=== PATIENT | male | born 1985 | race Caucasian/White ===

== ENCOUNTER 2017-11-15 04:15 | Emergency (ER) | payer BC ==
[2017-11-15] MEDS ORDERED: Sodium Chloride 0.9% 1,000 ML IV ONE (04:17)
--- NOTE | 2017-11-15 04:19 | EDM.PDOC ---
ED HPI GENERAL MEDICAL PROBLEM - General Stated Complaint: TINGLING IN THROAT, COUGH, SIDE PAIN Time Seen by Provider: 11/15/17 04:18 Source of Information: Reports: Patient - History of Present Illness INITIAL COMMENTS - FREE TEXT/NARRATIVE: HISTORY AND PHYSICAL: History of present illness: [Patient presents with persistent cough increasing in severity over the last week at current he is coughing until he is lightheaded see spots and nearly vomits he has had couple episodes of near-syncope due to cough on arrival he has diminished breath sounds is provided Solu-Medrol 1 DuoNeb which is cleared this up and resolved the cough No fever nausea vomiting chills sweats no chest pain shortness breath headache dizziness palpitation no bowel or urine symptoms ] Review of systems: As per history of present illness and below otherwise all systems reviewed and negative. Past medical history: As per history of present illness and as reviewed below otherwise noncontributory. Surgical history: As per history of present illness and as reviewed below otherwise noncontributory. Social history: No reported history of drug or alcohol abuse. Family history: As per history of present illness and as reviewed below otherwise noncontributory. Physical exam: HEENT: Atraumatic, normocephalic, pupils reactive, negative for conjunctival pallor or scleral icterus, mucous membranes moist, throat clear, neck supple, nontender, trachea midline. Lungs: Clear to auscultation, breath sounds equal bilaterally, chest nontender. Heart: S1S2, regular, negative for clicks, rubs, or JVD. Abdomen: Soft, nondistended, nontender. Negative for masses or hepatosplenomegaly. Negative for costovertebral tenderness. Pelvis: Stable nontender. Genitourinary: Deferred. Rectal: Deferred. Extremities: Atraumatic, negative for cords or calf pain. Neurovascular unremarkable. Neuro: Awake, alert, oriented. Cranial nerves II through XII unremarkable. Cerebellum unremarkable. Motor and sensory unremarkable throughout. Exam nonfocal. Diagnostics: [CBC CMP troponin EKG Chest 1 view Orthostatic vital signs ] Therapeutics: [ 1 L normal saline bolus ]DuoNeb Solu-Medrol Z-Keshawn Medrol Dosepak HFA Impression: Bronchitis Definitive disposition and diagnosis as appropriate pending reevaluation and review of above. - Related Data Allergies Allergy/AdvReac Type Severity Reaction Status Date / Time No Known Allergies Allergy Verified 11/15/17 04:33 Home Meds: Home Meds . [No Known Home Meds] 11/15/17 [History] ED ROS GENERAL - Review of Systems Review Of Systems: See Below ED EXAM, GENERAL - Physical Exam Exam: See Below Course - Vital Signs Last Recorded V/S: Last Vital Signs Temp 97.4 F 11/15/17 04:30 Pulse 81 11/15/17 04:30 Resp 16 11/15/17 04:30 BP 145/94 H 11/15/17 04:30 Pulse Ox 96 11/15/17 04:30 Orthostatic Blood Pressure [ 133/85 Sitting] Orthostatic Blood Pressure [ 144/85 Supine] - Orders/Labs/Meds Orders: Active Orders 24 hr Category Date Time Status EKG Documentation Completion [RC] STAT Care 11/15/17 04:17 Active Orthostatic Vital Signs [RC] ASDIRECTED Care 11/15/17 04:17 Active RT Aerosol Therapy [RC] ASDIRECTED Care 11/15/17 04:26 Active Chest 1V Frontal [CR] Stat Exams 11/15/17 04:17 Taken Sodium Chloride 0.9% [Normal Saline] 1,000 ml Med 11/15/17 04:17 Active IV STAT Medication Orders Sodium Chloride (Normal Saline) 1,000 mls @ 999 mls/hr IV STAT ONE Stop: 11/15/17 05:17 Last Admin: 11/15/17 04:35 Dose: 999 mls/hr Labs: Laboratory Tests 11/15/17 11/15/17 Range/Units 04:31 04:31 WBC 10.01 (4.0-11.0) K/uL RBC 5.27 (4.50-5.90) M/uL Hgb 16.0 (13.0-17.0) g/dL Hct 45.9 (38.0-50.0) % MCV 87.1 (80.0-98.0) fL MCH 30.4 (27.0-32.0) pg MCHC 34.9 (31.0-37.0) g/dL RDW Std Deviation 41.1 (28.0-62.0) fl RDW Coeff of Home 13 (11.0-15.0) % Plt Count 249 (150-400) K/uL MPV 9.80 (7.40-12.00) fL Neut % (Auto) 58.4 (48.0-80.0) % Lymph % (Auto) 30.6 (16.0-40.0) % [place] % (Auto) 7.9 (0.0-15.0) % Eos % (Auto) 2.8 (0.0-7.0) % Baso % (Auto) 0.3 (0.0-1.5) % Neut # (Auto) 5.9 H (1.4-5.7) K/uL Lymph # (Auto) 3.1 H (0.6-2.4) K/uL [place] # (Auto) 0.8 (0.0-0.8) K/uL Eos # (Auto) 0.3 (0.0-0.7) K/uL Baso # (Auto) 0.0 (0.0-0.1) K/uL Nucleated RBC % 0.0 /100WBC Nucleated RBCs # 0 K/uL Sodium 139 (136-148) mmol/L Potassium 3.7 (3.5-5.1) mmol/L Chloride 101 (98-107) mmol/L Carbon Dioxide 28.7 (21.0-32.0) mmol/L BUN 15 (7.0-18.0) mg/dL Creatinine 1.1 (0.8-1.3) mg/dL Est Cr Clr Drug Dosing 98.19 mL/min Estimated GFR (MDRD) > 60.0 ml/min Glucose 131 H (74-106) mg/dL Calcium 9.0 (8.5-10.1) mg/dL Total Bilirubin 0.3 (0.2-1.0) mg/dL AST 31 (15-37) IU/L ALT 80 H (14-63) IU/L Alkaline Phosphatase 80 (46-116) U/L Troponin I < 0.050 (0.000-0.056) ng/mL Total Protein 7.9 (6.4-8.2) g/dL Albumin 4.0 (3.4-5.0) g/dL Globulin 3.9 H (2.0-3.5) g/dL Albumin/Globulin Ratio 1.0 L (1.3-2.8) Meds: Medications Generic Name Dose Route Start Last Admin Trade Name Freq PRN Reason Stop Dose Admin Sodium Chloride 1,000 mls @ 999 mls/hr 11/15/17 04:17 11/15/17 04:35 Normal Saline IV 11/15/17 05:17 999 mls/hr STAT ONE Administration Discontinued Medications Generic Name Dose Route Start Last Admin Trade Name Erich PRN Reason Stop Dose Admin Albuterol/Ipratropium 3 ml 11/15/17 04:25 11/15/17 04:40 Duoneb 3.0-0.5 Mg/3 Ml NEB 11/15/17 04:26 3 ml ONETIME ONE Administration Methylprednisolone Sodium Succinate 125 mg 11/15/17 04:25 11/15/17 04:40 Solu-Medrol IVPUSH 11/15/17 04:26 125 mg ONETIME ONE Administration Departure - Departure Time of Disposition: 05:17 Disposition: Home, Self-Care 01 Condition: Good Clinical Impression: Bronchitis - Discharge Information Additional Instructions: The following information is given to patients seen in the emergency department who are being discharged to home. This information is to outline your options for follow-up care. We provide all patients seen in our emergency department with a follow-up referral. The need for follow-up, as well as the timing and circumstances, are variable depending upon the specifics of your emergency department visit. If you don't have a primary care physician on staff, we will provide you with a referral. We always advise you to contact your personal physician following an emergency department visit to inform them of the circumstance of the visit and for follow-up with them and/or the need for any referrals to a consulting specialist. The emergency department will also refer you to a specialist when appropriate. This referral assures that you have the opportunity for follow-up care with a specialist. All of these measure are taken in an effort to provide you with optimal care, which includes your follow-up. Under all circumstances we always encourage you to contact your private physician who remains a resource for coordinating your care. When calling for follow-up care, please make the office aware that this follow-up is from your recent emergency room visit. If for any reason you are refused follow-up, please contact the [facility] emergency department at and asked to speak to the emergency department charge nurse. - My Orders Last 24 Hours: My Active Orders 11/15/17 04:17 EKG Documentation Completion [RC] STAT Orthostatic Vital Signs [RC] ASDIRECTED Chest 1V Frontal [CR] Stat Sodium Chloride 0.9% [Normal Saline] 1,000 ml IV STAT 11/15/17 04:26 RT Aerosol Therapy [RC] ASDIRECTED - Assessment/Plan Last 24 Hours: My Active Orders 11/15/17 04:17 EKG Documentation Completion [RC] STAT Orthostatic Vital Signs [RC] ASDIRECTED Chest 1V Frontal [CR] Stat Sodium Chloride 0.9% [Normal Saline] 1,000 ml IV STAT 11/15/17 04:26 RT Aerosol Therapy [RC] ASDIRECTED
[2017-11-15] MEDS ORDERED: methylPREDNISolone Sodium Succinate 125 MG/2 ML SDV IVPUSH ONE (04:25)
[2017-11-15] MEDS ORDERED: Albuterol/Ipratropium 3.0-0.5 MG/3 ML Neb Soln NEB ONE (04:25)
[2017-11-15 05:02] LABS: CHLORIDE,CL 101 mmol/L (98-107); SODIUM,NA 139 mmol/L (136-148)
--- NOTE | 2017-11-17 13:26 | CR ---
EXAM DATE: 11/15/17 PATIENT'S AGE: 32 Patient: SERGIO MISHRA Facility: [place], [place] Site . Site : 1985 Study: XRay Chest [id number]/16/2018 5:04:14 AM Ordering Physician: Doctor Steven Final Report: Indication: Cough Technique: Chest 1 view Comparison: None Findings/Impression: Cardiovascular and mediastinum: Heart size and vasculature are normal in caliber and appearance. Mediastinum is within normal limits. Lungs and pleural space: Lungs are clear. No sign of infiltrate or mass. No sign of pleural effusion. No pneumothorax. Bones and soft tissues: No significant findings. Dictated by Elizabeth Baumann MD @ Nov 15 2017 5:15AM (Electronic Signature) Report Signed by Proxy. NILDA
== END 2017-11-15 05:20 | disposition home or self-care (01) ==
LOC: MW.ED 04:15
DX: J40 Bronchitis, not specified as acute or chronic (principal)
CPT/HCPCS: 71045; 80053; 84484; 85025; 93005; 94640; 96361; 96374; 99284; J2930; J7040

== ENCOUNTER 2018-01-12 00:36 | Observation (INO) | payer OTHER, BC ==
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
[2018-01-12] MEDS ORDERED: Sodium Chloride 0.9% 1,000 ML IV ONE (00:55)
[2018-01-12] MEDS ORDERED: Sodium Chloride 0.9% 2.5 ML Syringe FLUSH PRN ×2 (00:55)
[2018-01-12] MEDS ORDERED: Sodium Chloride 0.9% 10 ML Syringe FLUSH PRN (00:55)
[2018-01-12 01:33] LABS: CHLORIDE,CL 102 mmol/L (98-107); SODIUM,NA 142 mmol/L (136-148)
[2018-01-12] MEDS ORDERED: Potassium Chloride 20 MEQ Tab.ER PO ONE (02:15)
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
[2018-01-13 06:19] LABS: CHLORIDE,CL 101 mmol/L (98-107); SODIUM,NA 137 mmol/L (136-148)
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
== END 2018-01-13 15:30 | disposition home or self-care (01) ==
LOC: MW.ED 00:36 → MW.MS 01:30
PROVIDERS: ADMIT Internal Medicine; ATTEND Internal Medicine
DX: R55 Syncope and collapse (principal); J40 Bronchitis, not specified as acute or chronic; V64.5XXA Driver of heavy transport vehicle injured in collision with heavy transport vehicle or bus in traffic accident, initial encounter
CPT/HCPCS: 36415; 70450; 71045; 72125; 73130; 80048; 80053; 81001; 84484; 85025; 85379; 85610; 93005; 96360; 99285; A9270; G0378; J7040; 99284

== ENCOUNTER 2019-01-02 08:58 | Emergency (ER) | payer BC ==
[2019-01-02] MEDS ORDERED: Ondansetron 4 MG/2 ML SDV IVPUSH ONE (09:17)
--- NOTE | 2019-01-02 09:22 | EDM.PDOC ---
ED HPI GENERAL MEDICAL PROBLEM - General Chief Complaint: General Stated Complaint: UNABLE TO SLEEP, WARM, SHAKEY Time Seen by Provider: 01/02/19 09:08 - History of Present Illness INITIAL COMMENTS - FREE TEXT/NARRATIVE: HISTORY AND PHYSICAL: History of present illness: The patient is a 33-year-old male who presents to the ED with 5 days of feeling warm and tingly all over having increased stress in his life due to issues at home and issues here, sleeping poorly over the last 3 days and one episode of vomiting and one episode of diarrhea. He has had intermittent nausea and some vague abdominal discomfort with this and says that he usually gets an upset stomach when he is under stress. He has tried [id number] melatonin 3 mg as well as drinking herbal tea and trying to listen to soothing music to help go to sleep and it has not worked. He has no chest pain or shortness of breath no fevers or chills no upper respiratory infection or cough and says that he is able to eat and drink and is not chronically or constantly nauseated. He has no weakness numbness or tingling in his extremities no neck or back pain. He and his family member at bedside are asking for resources or some counseling as they think that this might help him to develop some better coping mechanisms with these stressors. The patient is not exhibiting or stating any suicidal ideation Review of systems: As per history of present illness and below otherwise all systems reviewed and negative. Past medical history: As per history of present illness and as reviewed below otherwise noncontributory. Surgical history: As per history of present illness and as reviewed below otherwise noncontributory. Social history: No reported history of drug or alcohol abuse. Family history: As per history of present illness and as reviewed below otherwise noncontributory. Physical exam: General: Well-developed well-nourished mildly overweight man who is nontoxic and vital signs are noted by me. HEENT: Atraumatic, normocephalic, pupils reactive, negative for conjunctival pallor or scleral icterus, mucous membranes moist, throat clear, neck supple, nontender, trachea midline. Lungs: Clear to auscultation, breath sounds equal bilaterally, chest nontender. Heart: S1S2, regular and rhythm no overt murmurs Abdomen: Soft, nondistended, nontender. Negative for masses or hepatosplenomegaly. Negative for costovertebral tenderness. Pelvis: Stable nontender. Genitourinary: Deferred. Rectal: Deferred. Extremities: Atraumatic, no pedal edema and full range of motion Neurovascular unremarkable. Neuro: Awake, alert, oriented. Cranial nerves II through XII unremarkable. Cerebellum unremarkable. Motor and sensory unremarkable throughout. Exam nonfocal. Diagnostics: CBC CMP lipase Therapeutics: Zofran ODT, Ativan by mouth 1 dose I discussed with the patient that I could give him one dose of Ativan here but I could not write a prescription and that he would need to follow-up with a provider in the clinic and also work on outpatient counseling and resources to help him develop coping masses mechanisms for the stressors he is having an dealing with his insomnia. He states understanding. Impression: Insomnia, anxiety reaction Definitive disposition and diagnosis as appropriate pending reevaluation and review of above. - Related Data Allergies Allergy/AdvReac Type Severity Reaction Status Date / Time No Known Allergies Allergy Verified 01/02/19 09:05 Home Meds: Home Meds Inhaler-Unkno 03/14/18 [History] Past Medical History - Past Health History Medical/Surgical History: Denies Medical/Surgical History Respiratory History: Reports: Sleep Apnea - Infectious Disease History Infectious Disease History: Reports: Chicken Pox Social & Family History - Family History Family Medical History: Noncontributory - Tobacco Use Smoking Status *Q: Never Smoker - Caffeine Use Caffeine Use: Reports: Tea - Recreational Drug Use Recreational Drug Use: No ED ROS GENERAL - Review of Systems Review Of Systems: ROS reveals no pertinent complaints other than HPI. ED EXAM, GENERAL - Physical Exam Exam: See Below (see Dictation) Course - Vital Signs Last Recorded V/S: Last Vital Signs Temp 36.3 C 01/02/19 09:06 Pulse 82 01/02/19 09:06 Resp 17 01/02/19 09:06 BP 137/83 01/02/19 09:06 Pulse Ox 92 L 01/02/19 09:06 - Orders/Labs/Meds Orders: Active Orders 24 hr Category Date Time Status LORazepam [Ativan] Med 01/02/19 10:28 Once 1 mg PO ONETIME ONE Medication Orders Lorazepam (Ativan) 1 mg PO ONETIME ONE Stop: 01/02/19 10:29 Labs: Laboratory Tests 01/02/19 01/02/19 Range/Units 09:27 09:27 WBC 10.85 (4.0-11.0) K/uL RBC 5.27 (4.50-5.90) M/uL Hgb 15.9 (13.0-17.0) g/dL Hct 45.3 (38.0-50.0) % MCV 86.0 (80.0-98.0) fL MCH 30.2 (27.0-32.0) pg MCHC 35.1 (31.0-37.0) g/dL RDW Std Deviation 41.1 (28.0-62.0) fl RDW Coeff of Home 13 (11.0-15.0) % Plt Count 264 (150-400) K/uL MPV 9.80 (7.40-12.00) fL Neut % (Auto) 75.1 (48.0-80.0) % Lymph % (Auto) 18.4 (16.0-40.0) % [place] % (Auto) 5.3 (0.0-15.0) % Eos % (Auto) 1.0 (0.0-7.0) % Baso % (Auto) 0.2 (0.0-1.5) % Neut # (Auto) 8.2 H (1.4-5.7) K/uL Lymph # (Auto) 2.0 (0.6-2.4) K/uL [place] # (Auto) 0.6 (0.0-0.8) K/uL Eos # (Auto) 0.1 (0.0-0.7) K/uL Baso # (Auto) 0.0 (0.0-0.1) K/uL Nucleated RBC % 0.0 /100WBC Nucleated RBCs # 0 K/uL Sodium 138 (136-148) mmol/L Potassium 3.6 (3.5-5.1) mmol/L Chloride 101 (98-107) mmol/L Carbon Dioxide 27.0 (21.0-32.0) mmol/L BUN 9 (7.0-18.0) mg/dL Creatinine 0.9 (0.8-1.3) mg/dL Est Cr Clr Drug Dosing 118.92 mL/min Estimated GFR (MDRD) > 60.0 ml/min Glucose 162 H (74-106) mg/dL Calcium 9.3 (8.5-10.1) mg/dL Total Bilirubin 0.6 (0.2-1.0) mg/dL AST 35 (15-37) IU/L ALT 106 H (14-63) IU/L Alkaline Phosphatase 70 (46-116) U/L Total Protein 8.1 (6.4-8.2) g/dL Albumin 4.1 (3.4-5.0) g/dL Globulin 4.0 (2.6-4.0) g/dL Albumin/Globulin Ratio 1.0 (0.9-1.6) Lipase 187 (73-393) U/L TSH 3rd Generation 1.06 (0.36-3.74) uIU/mL Meds: Medications Generic Name Dose Route Start Last Admin Trade Name Freq PRN Reason Stop Dose Admin Lorazepam 1 mg 01/02/19 10:28 Ativan PO 01/02/19 10:29 ONETIME ONE Discontinued Medications Generic Name Dose Route Start Last Admin Trade Name Freq PRN Reason Stop Dose Admin Ondansetron HCl 4 mg 01/02/19 09:17 Zofran IVPUSH 01/02/19 09:18 ONETIME ONE Ondansetron HCl 4 mg 01/02/19 09:30 01/02/19 09:35 Zofran Odt PO 01/02/19 09:31 4 mg ONETIME ONE Administration Departure - Departure Time of Disposition: 10:29 Disposition: Home, Self-Care 01 Condition: Good Clinical Impression: Anxiety reaction, Insomnia - Discharge Information Referrals: PCP,Unknown [Primary Care Provider] - Forms: ED Department Discharge Additional Instructions: The following information is given to patients seen in the emergency department who are being discharged to home. This information is to outline your options for follow-up care. We provide all patients seen in our emergency department with a follow-up referral. The need for follow-up, as well as the timing and circumstances, are variable depending upon the specifics of your emergency department visit. If you don't have a primary care physician on staff, we will provide you with a referral. We always advise you to contact your personal physician following an emergency department visit to inform them of the circumstance of the visit and for follow-up with them and/or the need for any referrals to a consulting specialist. The emergency department will also refer you to a specialist when appropriate. This referral assures that you have the opportunity for followup care with a specialist. All of these measure are taken in an effort to provide you with optimal care, which includes your followup. Under all circumstances we always encourage you to contact your private physician who remains a resource for coordinating your care. When calling for followup care, please make the office aware that this follow-up is from your recent emergency room visit. If for any reason you are refused follow-up, please contact the [facility] emergency department at and ask to speak to the emergency department charge nurse. [facility] Primary care- [place] [address] Please use the resources you have been given and connect with outpatient counseling as we discussed to help you discuss the stressors in her life and how to better cope with them and to promote good sleeping habits. Push hydration and avoid all caffeinated products even decaf products as they still contain some caffeine. Continue to try [id number] medications to help sleep. Follow-up with one of our providers in the clinic using resources given to above and return to ER as needed and as discussed - My Orders Last 24 Hours: My Active Orders 01/02/19 10:28 LORazepam [Ativan] 1 mg PO ONETIME ONE - Assessment/Plan Last 24 Hours: My Active Orders 01/02/19 10:28 LORazepam [Ativan] 1 mg PO ONETIME ONE
[2019-01-02] MEDS ORDERED: Ondansetron 4 MG Tab.DIS PO ONE (09:30)
[2019-01-02 10:00] LABS: BLOOD UREA NITROGEN,BUN 9 mg/dL (7.0-18.0); CHLORIDE,CL 101 mmol/L (98-107); GLUCOSE RANDOM 162 mg/dL (74-106); LIPASE 187 U/L (73-393); POTASSIUM,K 3.6 mmol/L (3.5-5.1); SODIUM,NA 138 mmol/L (136-148)
[2019-01-02] MEDS ORDERED: LORazepam 1 MG Tab PO ONE (10:28)
== END 2019-01-02 10:46 | disposition home or self-care (01) ==
LOC: MW.ED 08:58
DX: G47.00 Insomnia, unspecified (principal); F51.05 Insomnia due to other mental disorder; F41.1 Generalized anxiety disorder; Z79.51 Long term (current) use of inhaled steroids
CPT/HCPCS: 36415; 80053; 83690; 84443; 85025; 99283; A9270

== ENCOUNTER 2020-09-12 22:20 | Emergency (ER) | payer BC ==
--- NOTE | 2020-09-12 22:49 | EDM.PDOC ---
ED HPI GENERAL MEDICAL PROBLEM - General Chief Complaint: Abdominal Pain Stated Complaint: TINGLING IN FINGERS, LT SIDE RIB PAIN Time Seen by Provider: 09/12/20 22:48 Source of Information: Reports: Patient History Limitations: Reports: No Limitations - History of Present Illness INITIAL COMMENTS - FREE TEXT/NARRATIVE: 35 yo M h/o DM, TYRA (CPAP), HLD presents with tingling sensation in bilateral hands and feet over the last 10 days. He notes intermittent left upper quadrant abdominal cramping sensation over the past 10 days. His last episode was this morning at 6:00, and it lasted for 20 minutes. He is currently pain-free. ROS: A 10-point review of systems, other than pertinent positives and negatives as stated per HPI, is otherwise negative Past medical history: No additional pertinent history Past Surgical history: No additional pertinent history Social history: No additional pertinent history Family history: No additional pertinent history PHYSICAL EXAM General: AOx4, GCS = 15, smiling in no distress. BMI 50 HEENT: dry mucous membrane Neck: supple, no meningismus, no Kernig or Brudzinski Cardiac: S1S2 RRR Respiratory: CTAB, no crackles or rales, no wheezing Abdomen: Soft, nontender, no rebound or guarding, nondistended, no pulsatile mass. Back: nontender Musculoskeletal: NVI distally, no deformity Neuro: No focal deficits, CN 2 - 12 WNL. LUQ Pain Score (Numeric/FACES): 2 - Related Data Allergies Allergy/AdvReac Type Severity Reaction Status Date / Time No Known Allergies Allergy Verified 09/12/20 23:11 Home Meds: Home Meds Omeprazole Magnesium [Prilosec Otc] 20 mg PO BID #30 tablet. 09/12/20 [Rx] atorvaSTATin [Lipitor] 40 mg PO BEDTIME 09/12/20 [History] metFORMIN [Glucophage XR] 500 mg PO BIDMEALS 09/12/20 [History] Past Medical History - Past Health History Medical/Surgical History: Denies Medical/Surgical History Respiratory History: Reports: Sleep Apnea - Infectious Disease History Infectious Disease History: Reports: Chicken Pox Social & Family History - Family History Family Medical History: No Pertinent Family History - Caffeine Use Caffeine Use: Reports: Tea ED ROS GENERAL - Review of Systems Review Of Systems: See Below ED EXAM, GENERAL - Physical Exam Exam: See Below (see dictation) #1 Interpretation EKG Interpretation Comments: Heart rate = 69 bpm, normal sinus rhythm, normal QRS interval, no STEMI. EKG and rhythm strip interpreted by me at 1055p Course - Vital Signs Last Recorded V/S: Last Vital Signs Temp 98 F 09/12/20 23:00 Pulse 75 09/12/20 23:00 Resp 16 09/12/20 23:00 BP 134/75 09/12/20 23:00 Pulse Ox 98 09/12/20 23:00 - Orders/Labs/Meds Orders: Active Orders 24 hr Category Date Time Status EKG 12 Lead [EKG Documentation Completion] [RC] STAT Care 09/12/20 22:59 Active POC Glucose [Blood Glucose Check, Bedside] [RC] ONETIME Care 09/12/20 23:02 Active Labs: Laboratory Tests 09/12/20 09/12/20 Range/Units 23:25 23:25 WBC 4.18 (4.0-11.0) K/uL RBC 4.93 (4.50-5.90) M/uL Hgb 14.8 (13.0-17.0) g/dL Hct 44.2 (38.0-50.0) % MCV 89.7 (80.0-98.0) fL MCH 30.0 (27.0-32.0) pg MCHC 33.5 (31.0-37.0) g/dL RDW Std Deviation 46.2 (28.0-62.0) fl RDW Coeff of Home 14 (11.0-15.0) % Plt Count 165 (150-400) K/uL MPV 9.90 (7.40-12.00) fL Neut % (Auto) 62.0 (48.0-80.0) % Lymph % (Auto) 26.6 (16.0-40.0) % [place] % (Auto) 10.0 (0.0-15.0) % Eos % (Auto) 1.4 (0.0-7.0) % Baso % (Auto) 0.0 (0.0-1.5) % Neut # (Auto) 2.6 (1.4-5.7) K/uL Lymph # (Auto) 1.1 (0.6-2.4) K/uL [place] # (Auto) 0.4 (0.0-0.8) K/uL Eos # (Auto) 0.1 (0.0-0.7) K/uL Baso # (Auto) 0.0 (0.0-0.1) K/uL Nucleated RBC % 0.0 /100WBC Nucleated RBCs # 0 K/uL Sodium 137 (136-148) mmol/L Potassium 3.8 (3.5-5.1) mmol/L Chloride 101 (98-107) mmol/L Carbon Dioxide 28.2 (21.0-32.0) mmol/L BUN 10 (7.0-18.0) mg/dL Creatinine 1.0 (0.8-1.3) mg/dL Est Cr Clr Drug Dosing 98.23 mL/min Estimated GFR (MDRD) > 60.0 ml/min Glucose 183 H (74-106) mg/dL Calcium 8.1 L (8.5-10.1) mg/dL Total Bilirubin 0.3 (0.2-1.0) mg/dL AST 35 (15-37) IU/L ALT 109 H (14-63) IU/L Alkaline Phosphatase 64 (46-116) U/L Troponin I < 0.050 (0.000-0.056) ng/mL Total Protein 7.6 (6.4-8.2) g/dL Albumin 3.7 (3.4-5.0) g/dL Globulin 3.9 (2.6-4.0) g/dL Albumin/Globulin Ratio 0.9 (0.9-1.6) Meds: Medications Discontinued Medications Generic Name Dose Route Start Last Admin Trade Name Freq PRN Reason Stop Dose Admin Al Hydroxide/Mg Hydroxide 15 0 ml 09/12/20 23:12 09/12/20 23:37 ml/ Metoclopramide HCl 5 mg/ PO 09/12/20 23:13 1 each Lidocaine HCl 5 ml ONETIME ONE Administration - Re-Assessments/Exams Free Text/Narrative Re-Assessment/Exam: 09/13/20 00:35 After prolonged observation in the ER, the patient improved and is currently stable for discharge. I performed a repeat exam and did not appreciate new abnormal findings. Patient exhibits normal vital signs and has a normal gait on road test. I advised the patient to return to the ER for reevaluation if symptoms worsened, including fever, worsening pain, or any other worrisome symptoms. I instructed the patient to follow up with their PCP within 2-3 days. MEDICAL DECISION MAKING: I reviewed the patients past medical records, lab and radiographic findings. I discussed the case with the patient. My differential diagnosis included: Diabetic neuropathy, GERD, PUD. Patient has no abdominal tenderness on my exam, he has no complaints of abdominal pain at this time. EKG was performed and did not show any ischemic abnormalities, I do not suspect ACS. He was given GI cocktail. His electrolytes were unremarkable, he has a history of diabetes and his tingling sensation is likely secondary to diabetic neuropathy. Departure - Departure Time of Disposition: 00:31 Disposition: Home, Self-Care 01 Condition: Good Clinical Impression: GERD (gastroesophageal reflux disease), Diabetic neuropathy - Discharge Information *PRESCRIPTION DRUG MONITORING PROGRAM REVIEWED*: Not Applicable *COPY OF PRESCRIPTION DRUG MONITORING REPORT IN PATIENT RAYMOND: Not Applicable Prescriptions: Omeprazole Magnesium [Prilosec Otc] 20 mg PO BID #30 tablet. Instructions: Food Choices for Gastroesophageal Reflux Disease, Adult, Diabetic Neuropathy Referrals: PCP,None [Primary Care Provider] - Forms: ED Department Discharge Additional Instructions: The need for follow-up, as well as the timing and circumstances, are variable depending upon the specifics of your emergency department visit. If you don't have a primary care physician on staff, we will provide you with a referral. We always advise you to contact your personal physician following an emergency department visit to inform them of the circumstance of the visit and for follow-up with them and/or the need for any referrals to a consulting speci alist. The emergency department will also refer you to a specialist when appropriate. This referral assures that you have the opportunity for follow-up care with a specialist. All of these measure are taken in an effort to provide you with optimal care, which includes your follow-up. Under all circumstances we always encourage you to contact your private physician who remains a resource for coordinating your care. When calling for follow-up care, please make the office aware that this follow-up is from your recent emergency room visit. If for any reason you are refused follow-up, please contact the [facility] Emergency Department at and asked to speak to the emergency department charge nurse. If you do not have a primary care doctor, please follow up with the clinics below within 3-5 days. [facility] - Primary Care [address] [place] [id number] [address] Sepsis Event Note (ED) - Focused Exam Vital Signs: Vital Signs Temp Pulse Resp BP Pulse Ox 09/12/20 23:00 98 F 75 16 134/75 98 - My Orders Last 24 Hours: My Active Orders 09/12/20 22:59 EKG 12 Lead [EKG Documentation Completion] [RC] STAT 09/12/20 23:02 POC Glucose [Blood Glucose Check, Bedside] [RC] ONETIME - Assessment/Plan Last 24 Hours: My Active Orders 09/12/20 22:59 EKG 12 Lead [EKG Documentation Completion] [RC] STAT 09/12/20 23:02 POC Glucose [Blood Glucose Check, Bedside] [RC] ONETIME
[2020-09-12] MEDS ORDERED: Alum Hydrox/Mag Hydrox/Simeth 15 ML, Metoclopramide 5 MG, Lidocaine 2% 5 ML PO ONE ×3 (23:12)
[2020-09-12 23:56] LABS: BLOOD UREA NITROGEN,BUN 10 mg/dL (7.0-18.0); CARBON DIOXIDE,CO2 28.2 mmol/L (21.0-32.0); CHLORIDE,CL 101 mmol/L (98-107); GLUCOSE RANDOM 183 mg/dL (74-106); POTASSIUM,K 3.8 mmol/L (3.5-5.1); SODIUM,NA 137 mmol/L (136-148)
== END 2020-09-13 00:56 | disposition home or self-care (01) ==
LOC: MW.ED 22:20
DX: K21.9 Gastro-esophageal reflux disease without esophagitis (principal); E11.40 Type 2 diabetes mellitus with diabetic neuropathy, unspecified; E78.5 Hyperlipidemia, unspecified; Z79.84 Long term (current) use of oral hypoglycemic drugs; Z79.899 Other long term (current) drug therapy
CPT/HCPCS: 36415; 80053; 82962; 84484; 85025; 93005; 99284; A9270; 93010; 99283

== ENCOUNTER 2020-09-18 11:42 | Emergency (ER) | payer BC ==
[2020-09-18] MEDS ORDERED: Sodium Chloride 0.9% 2.5 ML Syringe FLUSH PRN (11:54)
[2020-09-18] MEDS ORDERED: Sodium Chloride 0.9% 10 ML Syringe FLUSH PRN (11:54)
--- NOTE | 2020-09-18 12:08 | EDM.PDOC ---
ED HPI GENERAL MEDICAL PROBLEM - General Chief Complaint: Respiratory Problem Stated Complaint: SOB CHEST PAIN Time Seen by Provider: 09/18/20 11:43 - History of Present Illness INITIAL COMMENTS - FREE TEXT/NARRATIVE: 35-year-old male history of diabetes presenting with shortness of breath and cough. Patient first felt ill 6 days ago. He developed fatigue and a dry cough. He gradually felt worse and worse. He did get a Covid test through the [facility] 5 days ago but is still waiting for those results. Has had some associated diarrhea scant hemoptysis with his productive cough and worsening shortness of breath over the last 24 to 48 hours. Associated with fatigue and chills. No alleviating factors. No history of lung disease non-smoker. Generalized Pain Score (Numeric/FACES): 9 - Related Data Allergies Allergy/AdvReac Type Severity Reaction Status Date / Time No Known Allergies Allergy Verified 09/18/20 12:05 Home Meds: Home Meds Omeprazole Magnesium [Prilosec Otc] 20 mg PO BID #30 tablet. 09/12/20 [Rx] atorvaSTATin [Lipitor] 40 mg PO BEDTIME 09/12/20 [History] metFORMIN [Glucophage XR] 500 mg PO BIDMEALS 09/12/20 [History] Past Medical History - Past Health History Medical/Surgical History: Denies Medical/Surgical History Respiratory History: Reports: Sleep Apnea Endocrine/Metabolic History: Reports: Diabetes, Type II - Infectious Disease History Infectious Disease History: Reports: Chicken Pox Social & Family History - Family History Family Medical History: No Pertinent Family History - Caffeine Use Caffeine Use: Reports: None ED ROS GENERAL - Review of Systems Review Of Systems: See Below Free Text/Narrative/Comment: General: Per HPI Skin: No rash. Eyes: No vision problems. ENT: No sore throat. Neck: No neck stiffness. Respiratory: Per HPI Cardiac: No chest pain. Gastrointestinal: Nonbloody diarrhea Musculoskeletal: + myalgias Neurologic: No headache. ED EXAM, GENERAL - Physical Exam Exam: See Below Free Text/Narrative:: General Appearance: No acute distress, appears comfortable Skin: No rash HEENT: Normocephalic/atraumatic, sclera anicteric, mucous membranes moist Neck: Normal range of motion Chest and Lungs: Bilateral breath sounds, clear to auscultation, mild dyspnea with talking Cardiovascular: Regular rate and rhythm, no murmur Abdomen: Soft, non-tender Back: Normal Musculoskeletal: No edema or tenderness Neurologic: Awake, alert, no obvious deficits, moving all extremities Psychiatric: Appropriate, cooperative #1 Interpretation EKG Date: 09/18/20 Time: 12:07 EKG Interpretation Comments: Sinus rhythm with a rate of 76 right interventricular conduction delay some baseline wander no acute ischemia Course - Vital Signs Last Recorded V/S: Last Vital Signs Temp 96.9 F 09/18/20 12:05 Pulse 77 09/18/20 12:05 Resp 20 09/18/20 12:05 BP 134/75 09/18/20 12:05 Pulse Ox 94 L 09/18/20 12:05 - Orders/Labs/Meds Orders: Active Orders 24 hr Category Date Time Status Sodium Chloride 0.9% [Saline Flush] Med 09/18/20 11:54 Active 10 ml FLUSH ASDIRECTED PRN Sodium Chloride 0.9% [Saline Flush] Med 09/18/20 11:54 Active 2.5 ml FLUSH ASDIRECTED PRN Saline Lock Insert [OM.PC] Stat Oth 09/18/20 11:54 Ordered Medication Orders Sodium Chloride (Sodium Chloride 0.9% 10 Ml Syringe) 10 ml FLUSH ASDIRECTED PRN PRN Reason: Keep Vein Open Last Admin: 09/18/20 12:44 Dose: 10 ml Documented by: CHERYL Sodium Chloride (Sodium Chloride 0.9% 2.5 Ml Syringe) 2.5 ml FLUSH ASDIRECTED PRN PRN Reason: Keep Vein Open Last Admin: 09/18/20 12:44 Dose: 2.5 ml Documented by: CHERYL Labs: Laboratory Tests 09/18/20 09/18/20 09/18/20 Range/Units 12:25 12:25 12:25 WBC 7.07 (4.0-11.0) K/uL RBC 4.82 (4.50-5.90) M/uL Hgb 14.3 (13.0-17.0) g/dL Hct 42.1 (38.0-50.0) % MCV 87.3 (80.0-98.0) fL MCH 29.7 (27.0-32.0) pg MCHC 34.0 (31.0-37.0) g/dL RDW Std Deviation 44.3 (28.0-62.0) fl RDW Coeff of Home 14 (11.0-15.0) % Plt Count 187 (150-400) K/uL MPV 10.30 (7.40-12.00) fL Neut % (Auto) 71.6 (48.0-80.0) % Lymph % (Auto) 18.8 (16.0-40.0) % [place] % (Auto) 9.2 (0.0-15.0) % Eos % (Auto) 0.3 (0.0-7.0) % Baso % (Auto) 0.1 (0.0-1.5) % Neut # (Auto) 5.1 (1.4-5.7) K/uL Lymph # (Auto) 1.3 (0.6-2.4) K/uL [place] # (Auto) 0.7 (0.0-0.8) K/uL Eos # (Auto) 0.0 (0.0-0.7) K/uL Baso # (Auto) 0.0 (0.0-0.1) K/uL Nucleated RBC % 0.0 /100WBC Nucleated RBCs # 0 K/uL Sodium 137 (136-148) mmol/L Potassium 3.7 (3.5-5.1) mmol/L Chloride 100 (98-107) mmol/L Carbon Dioxide 27.0 (21.0-32.0) mmol/L BUN 8 (7.0-18.0) mg/dL Creatinine 1.1 (0.8-1.3) mg/dL Est Cr Clr Drug Dosing 95.52 mL/min Estimated GFR (MDRD) > 60.0 ml/min Glucose 145 H (74-106) mg/dL Calcium 8.2 L (8.5-10.1) mg/dL Total Bilirubin 0.5 (0.2-1.0) mg/dL AST 33 (15-37) IU/L ALT 57 (14-63) IU/L Alkaline Phosphatase 43 L (46-116) U/L Troponin I < 0.050 (0.000-0.056) ng/mL Total Protein 7.9 (6.4-8.2) g/dL Albumin 3.3 L (3.4-5.0) g/dL Globulin 4.6 H (2.6-4.0) g/dL Albumin/Globulin Ratio 0.7 L (0.9-1.6) SARS-CoV-2 RNA (KATINA) POSITIVE H (NEGATIVE) Meds: Medications Generic Name Dose Route Start Last Admin Trade Name Freq PRN Reason Stop Dose Admin Sodium Chloride 10 ml 09/18/20 11:54 09/18/20 12:44 Sodium Chloride 0.9% 10 Ml Syringe FLUSH 10 ml ASDIRECTED PRN Administration Keep Vein Open Sodium Chloride 2.5 ml 09/18/20 11:54 09/18/20 12:44 Sodium Chloride 0.9% 2.5 Ml Syringe FLUSH 2.5 ml ASDIRECTED PRN Administration Keep Vein Open Departure - Departure Time of Disposition: 13:19 Disposition: Home, Self-Care 01 Condition: Fair Clinical Impression: COVID-19 - Discharge Information *PRESCRIPTION DRUG MONITORING PROGRAM REVIEWED*: Not Applicable *COPY OF PRESCRIPTION DRUG MONITORING REPORT IN PATIENT RAYMOND: Not Applicable Instructions: COVID-19 Frequently Asked Questions, 10 Things You Can Do to Manage Your COVID-19 Symptoms at Home - [facility] Referrals: PCP,None [Primary Care Provider] - Forms: ED Department Discharge Additional Instructions: You should receive a phone call to schedule your antibiotic infusion. If your shortness of breath worsens you develop severe chest pain or any other new symptoms that concern you please call your doctor or return to the ER. Please be sure to quarantine your self for 7 days, or as directed by the public health department. The following information is given to patients seen in the emergency department who are being discharged to home. This information is to outline your options for follow-up care. We provide all patients seen in our emergency department with a follow-up referral. The need for follow-up, as well as the timing and circumstances, are variable depending upon the specifics of your emergency department visit. If you don't have a primary care physician on staff, we will provide you with a referral. We always advise you to contact your personal physician following an emergency department visit to inform them of the circumstance of the visit and for follow-up with them and/or the need for any referrals to a consulting specialist. The emergency department will also refer you to a specialist when appropriate. This referral assures that you have the opportunity for follow-up care with a specialist. All of these measure are taken in an effort to provide you with optimal care, which includes your follow-up. Under all circumstances we always encourage you to contact your private physician who remains a resource for coordinating your care. When calling for follow-up care, please make the office aware that this follow-up is from your recent emergency room visit. If for any reason you are refused follow-up, please contact the [facility] Emergency Department at and asked to speak to the emergency department charge nurse. Sepsis Event Note (ED) - Evaluation Sepsis Screening Result: No Definite Risk - Focused Exam Vital Signs: Vital Signs Temp Pulse Resp BP Pulse Ox 09/18/20 12:05 96.9 F 77 20 134/75 94 L - My Orders Last 24 Hours: My Active Orders 09/18/20 11:54 Sodium Chloride 0.9% [Saline Flush] 10 ml FLUSH ASDIRECTED PRN Sodium Chloride 0.9% [Saline Flush] 2.5 ml FLUSH ASDIRECTED PRN Saline Lock Insert [OM.PC] Stat - Assessment/Plan Last 24 Hours: My Active Orders 09/18/20 11:54 Sodium Chloride 0.9% [Saline Flush] 10 ml FLUSH ASDIRECTED PRN Sodium Chloride 0.9% [Saline Flush] 2.5 ml FLUSH ASDIRECTED PRN Saline Lock Insert [OM.PC] Stat Assessment:: 35-year-old male presenting with signs symptoms most consistent with COVID-19 infection. Patient has known exposure in his who was tested positive. I preliminary interpretation of his chest x-ray is consistent with Covid. His EKG is without acute ischemia. He has some mild hypoxia but O2 is greater than 90. No indication for admission for oxygen therapy at this time. Labs pending and will continue to reassess and monitor. 1320: Patient's COVID-19 test is positive as expected. Labs are otherwise unremarkable chest x-ray consistent with Covid. Patient's oxygen has remained greater than 91% throughout his time in the ER. Because of his diabetes and his weight he is a candidate for the antibody infusion. I discussed with him the r isks benefits and alternatives of this treatment. His received this treatment as well and he would like to proceed with it. I faxed the appropriate paperwork and we will contact relevant person to help attempted get this scheduled.
--- NOTE | 2020-09-18 12:35 | CR ---
INDICATION: Shortness of breath TECHNIQUE: Chest 1 view. COMPARISON: 03/14/2018 FINDINGS: Cardiovascular and mediastinum: Heart size and vasculature are normal in caliber and appearance. Mediastinum is within normal limits. Lungs and pleural space: Patchy bilateral opacities. No sign of pleural effusion. No pneumothorax. Bones and soft tissues: No significant findings. IMPRESSION: Patchy bilateral opacities worrisome for pneumonia. Correlate with COVID pneumonia clinically. Dictated by Tarik Berry MD @ Sep 18 2020 12:32PM Signed by Dr. Tarik Berry @ Sep 18 2020 12:33PM
[2020-09-18 12:58] LABS: BLOOD UREA NITROGEN,BUN 8 mg/dL (7.0-18.0); CHLORIDE,CL 100 mmol/L (98-107); GLUCOSE RANDOM 145 mg/dL (74-106); POTASSIUM,K 3.7 mmol/L (3.5-5.1); SODIUM,NA 137 mmol/L (136-148)
== END 2020-09-18 13:45 | disposition home or self-care (01) ==
LOC: MW.ED 11:42
DX: U07.1 COVID-19 (principal); E11.9 Type 2 diabetes mellitus without complications; Z79.84 Long term (current) use of oral hypoglycemic drugs; Z79.899 Other long term (current) drug therapy
CPT/HCPCS: 36415; 71045; 71045-26; 80053; 84484; 85025; 93005; 93010; 99283; 99285-25; U0002